=== PATIENT | male | born 1990 | race African-American/Black ===

== ENCOUNTER 2017-05-25 01:03 | Emergency (ER) | payer MEDICAID, SELFPAY | END 2017-05-25 02:56 | disposition home or self-care (01) | LOC: ERS 01:03 | DX: H10.9 Unspecified conjunctivitis (principal) | CPT/HCPCS: 99282 ==

== ENCOUNTER 2018-12-23 14:58 | Emergency (ER) | payer MEDICARE, MEDICAID ==
[2018-12-23] MEDS ORDERED: Proparacaine 0.5% Opth 15 ML BOT ONE (15:17)
[2018-12-23] MEDS ORDERED: Fluorescein Opthalmic Strip ONE (15:17)
== END 2018-12-23 15:36 | disposition home or self-care (01) ==
LOC: ERS 14:58
DX: S05.02XA Injury of conjunctiva and corneal abrasion without foreign body, left eye, initial encounter (principal); X58.XXXA Exposure to other specified factors, initial encounter
CPT/HCPCS: 99283